=== PATIENT | male | born 2000 | race Caucasian/White ===

== ENCOUNTER 2023-08-06 19:10 | Emergency (ER) | payer OTHER ==
[2023-08-06] MEDS ORDERED: Iopamidol 612 MG/ML 100 ML Bottle IVPUSH ONE (19:32)
[2023-08-06] MEDS ORDERED: Diphtheria,Pertussis(Acell),Tetanus Vaccine 0.5 ML Syringe IM ONE (19:58)
== END 2023-08-06 22:06 | disposition home or self-care (01) ==
LOC: JD.ED 19:10
DX: S30.811A Abrasion of abdominal wall, initial encounter (principal); S50.311A Abrasion of right elbow, initial encounter; V49.50XA Passenger injured in collision with unspecified motor vehicles in traffic accident, initial encounter; Y92.410 Unspecified street and highway as the place of occurrence of the external cause
CPT/HCPCS: 70450; 71260; 72125; 73080; 74177; 90471; 90715; 99284; Q9967